=== PATIENT | male | born 1935 | race Hispanic/Latino ===

== ENCOUNTER 2020-09-25 12:04 | Emergency (ER) | payer OTHER ==
[~2020-09-25 12:04] MED LIST: ALBU8.5H8 IH; APIX2.5T PO; BUDE10.2 IH; FERS325 PO; FURO40TA7 PO; LACT10SO32 PO; LISI1TAB51 PO; LUBI24CA2 PO; METF-446 PO; METO-391 PO; POTA-79 PO; SIMV-43 PO
[2020-09-25] MEDS ORDERED: SODIUM CHLORIDE 0.9% 1000ML 1,000 ML IV ONE (12:05)
[2020-09-25 12:26] LABS: BASOPHILS % (AUTO) 0.7 % (0.0-5.0); EOSINOPHILS % (AUTO) 3.4 % (0.0-8.0); LYMPHOCYTES % (AUTO) 34.5 % (21.0-51.0); MEAN CORPUSCULAR HEMOGLOBIN 28.5 pg (27.0-33.0); MEAN CORPUSCULAR HGB CONC 33.3 g/dL (32.0-36.0); MEAN CORPUSCULAR VOLUME 85.8 fL (79-99); MONOCYTES % (AUTO) 9.1 % (3.0-13.0); NEUTROPHILS % (AUTO) 52.1 % (40.0-77.0); PLATELET COUNT (AUTO) 205 K/uL (130-400); RED BLOOD CELL COUNT(AUTO) 4.66 MIL/uL (4.50-6.20); RED CELL DISTRIBUTION WIDTH 13.9 % (11.0-15.5); WHITE BLOOD COUNT (AUTO) 5.8 K/uL (4.8-10.8)
[2020-09-25 12:35] LABS: CREATININE 1.7 mg/dL (0.5-1.5); POTASSIUM 4.5 mmol/L (3.5-5.1)
[2020-09-25 12:40] LABS: ALBUMIN 3.8 g/dL (3.5-5.0); BILIRUBIN,TOTAL 0.9 mg/dL (0.2-1.0); TOTAL PROTEIN, SERUM 8.3 g/dL (6.0-8.3)
[2020-09-25 15:35] LABS: CREATININE 1.5 mg/dL (0.5-1.5); POTASSIUM 4.2 mmol/L (3.5-5.1)
== END 2020-09-25 15:51 | disposition home or self-care (01) ==
LOC: EDH 12:04
DX: R79.89 Other specified abnormal findings of blood chemistry (principal); I11.0 Hypertensive heart disease with heart failure; I50.9 Heart failure, unspecified; E11.9 Type 2 diabetes mellitus without complications; E78.00 Pure hypercholesterolemia, unspecified; Z87.891 Personal history of nicotine dependence
CPT/HCPCS: 36415; 80048; 80053; 85025; 96360; 99283; J7030

== ENCOUNTER → 2021-02-12 | Outpatient (CLI) | payer OTHER | END | disposition home or self-care (01) | LOC: RAH 07:48 | PROVIDERS: ATTEND Internal Medicine Gastroenterology | DX: K80.20 Calculus of gallbladder without cholecystitis without obstruction (principal); K74.60 Unspecified cirrhosis of liver | CPT/HCPCS: 76700; 93975 ==

== ENCOUNTER 2021-06-06 10:55 | Observation (INO) | payer OTHER ==
[~2021-06-06] VITALS: Ht 172.7 cm; Wt 94.8 kg
[2021-06-06 10:57] VITALS: BP 137/76
[2021-06-06] MEDS ORDERED: PANTOPRAZOLE 40 MG/VIAL IVP ONE (12:30)
[2021-06-06] MEDS ORDERED: ONDANSETRON 4MG INJ IVP ONE (12:30)
[2021-06-06] MEDS ORDERED: 0.9%NACL 1000ML 1,000 ML IV ONE (12:30)
[2021-06-06 12:43] LABS: BASOPHILS % (AUTO) 0.6 % (0.0-5.0); EOSINOPHILS % (AUTO) 2.8 % (0.0-8.0); HEMATOCRIT 44.9 % (42-54); LYMPHOCYTES % (AUTO) 24.4 % (21.0-51.0); MEAN CORPUSCULAR VOLUME 87.2 fL (79-99); MONOCYTES % (AUTO) 10.7 % (3.0-13.0); NEUTROPHILS % (AUTO) 61.3 % (40.0-77.0); PLATELET COUNT (AUTO) 222 K/uL (130-400); RED BLOOD CELL COUNT(AUTO) 5.15 MIL/uL (4.50-6.20); RED CELL DISTRIBUTION WIDTH 14.3 % (11.0-15.5); WHITE BLOOD COUNT (AUTO) 5.4 K/uL (4.8-10.8)
[2021-06-06 13:00] VITALS: BP 117/63
[2021-06-06 13:04] LABS: APPEARANCE,URINE Clear (CLEAR); BILIRUBIN,URINE Negative (NEGATIVE); COLOR,URINE Yellow (YELLOW); GLUCOSE, URINE (UA) >=1000 mg/dL (NEGATIVE); KETONES,URINE Negative (NEGATIVE); LEUKOCYTE ESTERASE ,URINE Trace (NEGATIVE); NITRATE,URINE Negative (NEGATIVE); OCCULT BLOOD,URINE Negative (NEGATIVE); PROTEIN,URINE Negative (NEGATIVE)
[2021-06-06 13:08] LABS: BACTERIA,URINE Rare /HPF (None Seen); RBC,URINE 0-1 /HPF (0-1); SQUAMOUS EPITHELIAL CELL,UR Few /HPF (0-2); WBC,URINE 0-1 /HPF (0-1)
[2021-06-06 13:12] LABS: ALBUMIN 3.9 g/dL (3.5-5.0); BILIRUBIN,TOTAL 0.9 mg/dL (0.2-1.0); POTASSIUM 4.3 mmol/L (3.5-5.1); TOTAL PROTEIN, SERUM 8.3 g/dL (6.0-8.3)
[2021-06-06] MEDS: 0.9%NACL 1000ML 1,000 ML IV SCH (14:56)
[2021-06-06] MEDS ORDERED: ACETAMINOPHEN 325 MG TAB PO PRN ×2 (15:00)
[2021-06-06] MEDS ORDERED: ONDANSETRON 4MG INJ IV PRN (15:00)
[2021-06-06] MEDS ORDERED: LACTULOSE 20 GM/30 ML UDCUP PO PRN (15:00)
[2021-06-06] MEDS ORDERED: HEPARIN 5,000 UNIT VIAL SQ SCH (15:30)
[2021-06-06 15:49] LABS: CHOLESTEROL 120 mg/dL (<200); HDL CHOLESTEROL 41 mg/dL (29-71); LDL DIRECT 66 mg/dL (0-99); TRIGLYCERIDES 96 mg/dL (30-200)
[2021-06-06] MEDS: INSULIN HUMULIN R 100 UNIT/ML 3ML SQ SCH ×2 (16:03→22:01)
[2021-06-06 16:04] VITALS: BP 113/63
[2021-06-06 18:41] VITALS: BP 126/79
[2021-06-06 20:05] VITALS: BP 135/62
[2021-06-06] MEDS ORDERED: PIOG15TA66 PO (20:23)
[2021-06-07 03:37] VITALS: BP 106/67
[2021-06-07 05:33] VITALS: BP 119/67
[2021-06-07] MEDS ORDERED: SEMA1PEN3 SQ (07:19)
[2021-06-07 07:21] LABS: BASOPHILS % (AUTO) 0.8 % (0.0-5.0); EOSINOPHILS % (AUTO) 5.6 % (0.0-8.0); HEMATOCRIT 43.3 % (42-54); MEAN CORPUSCULAR HEMOGLOBIN 27.1 pg (27.0-33.0); MEAN CORPUSCULAR HGB CONC 31.2 g/dL (32.0-36.0); MEAN CORPUSCULAR VOLUME 86.9 fL (79-99); MONOCYTES % (AUTO) 12.8 % (3.0-13.0); NEUTROPHILS % (AUTO) 53.6 % (40.0-77.0); PLATELET COUNT (AUTO) 205 K/uL (130-400); RED BLOOD CELL COUNT(AUTO) 4.98 MIL/uL (4.50-6.20); RED CELL DISTRIBUTION WIDTH 14.4 % (11.0-15.5); WHITE BLOOD COUNT (AUTO) 4.9 K/uL (4.8-10.8)
[2021-06-07] MEDS: INSULIN HUMULIN R 100 UNIT/ML 3ML SQ SCH (07:30)
[2021-06-07 07:45] LABS: CREATININE 1.6 mg/dL (0.5-1.5); POTASSIUM 4.5 mmol/L (3.5-5.1)
[2021-06-07 07:48] VITALS: BP 126/68
[2021-06-07] MEDS ORDERED: PANTOPRAZOLE 40 MG TAB DR PO SCH (09:00)
[2021-06-07] MEDS: 0.9%NACL 1000ML 1,000 ML IV SCH (09:00)
[2021-06-07] MEDS ORDERED: FUROSEMIDE 40 MG TABLET PO SCH (09:08)
[2021-06-07] MEDS ORDERED: APIXABAN 2.5 MG TABLET PO SCH (09:08)
[2021-06-07] MEDS ORDERED: METOPROLOL SUCCINATE 50 MG TAB.SR.24H PO SCH (09:09)
[2021-06-07] MEDS ORDERED: PIOGLITAZONE 15MG TAB PO SCH (09:10)
[2021-06-07] MEDS ORDERED: LISINOPRIL 20 MG TABLET PO SCH (10:01)
[2021-06-07] MEDS ORDERED: HYDROCHLOROTHIAZIDE 25 MG TABLET PO SCH (10:02)
[2021-06-07 11:48] VITALS: BP 129/72
== END 2021-06-07 11:47 | disposition home or self-care (01) ==
LOC: EDH 10:55 → EDHIP 14:42
PROVIDERS: ADMIT Internal Medicine; ATTEND Internal Medicine
DX: N17.9 Acute kidney failure, unspecified (principal); I12.9 Hypertensive chronic kidney disease with stage 1 through stage 4 chronic kidney disease, or unspecified chronic kidney disease; N18.32 Chronic kidney disease, stage 3b; E11.22 Type 2 diabetes mellitus with diabetic chronic kidney disease; I25.10 Atherosclerotic heart disease of native coronary artery without angina pectoris; E11.65 Type 2 diabetes mellitus with hyperglycemia; E78.5 Hyperlipidemia, unspecified; D64.9 Anemia, unspecified; E87.5 Hyperkalemia; E78.00 Pure hypercholesterolemia, unspecified; R79.89 Other specified abnormal findings of blood chemistry; Z79.84 Long term (current) use of oral hypoglycemic drugs; Z87.891 Personal history of nicotine dependence; Z79.899 Other long term (current) drug therapy; Z98.890 Other specified postprocedural states
CPT/HCPCS: 36415 ×2; 76770; 80048; 80053; 80061; 81001; 82270; 82550; 82948 ×2; 83036; 83880; 84484; 85025 ×2; 86850; 86900; 86901; 93005; 96361 ×2; 96372; 96374; 96375; 99284; C9113; G0378 ×21; J1644; J1815 ×2; J2405; J7030

== ENCOUNTER 2021-12-03 05:36 | Day surgery (SDC) | payer OTHER ==
[2021-12-03] VITALS (7 sets, daily range): BP systolic 96–118; BP diastolic 47–58
[~2021-12-03] VITALS: Ht 172.7 cm; Wt 96.6 kg
[~2021-12-03 05:36] MED LIST changes: +PIOG15TA66 PO; +SEMA1PEN3 SQ
[2021-12-03] MEDS ORDERED: 0.9%NACL 1000ML 1,000 ML IV ONE (06:22)
[2021-12-03] MEDS ORDERED: TAMS-1 PO (07:12)
[2021-12-03] MEDS ORDERED: INSLAN SQ (07:12)
[2021-12-03] MEDS ORDERED: FINA5TAB41 PO (07:12)
[2021-12-03] MEDS ORDERED: ASCO500T19 PO (07:12)
[2021-12-03] MEDS ORDERED: LIDOCAINE HCL 1% 20 ML VIAL ONE (08:15)
[2021-12-03] MEDS ORDERED: PROPOFOL 10 MG/ML 20ML VIAL IV ONE (08:15)
[2021-12-03] MEDS ORDERED: PHENYLEPHRINE HCL 10 MG/ML 1ML VIAL IV ONE ×2 (08:21→08:22)
[2021-12-03] MEDS ORDERED: 0.9%NACL 10ML VIAL ONE ×2 (08:21→08:22)
[2021-12-03] MEDS ORDERED: EPHEDRINE SULFATE 50 MG/ML AMPULE ONE (08:25)
== END 2021-12-03 09:00 | disposition home or self-care (01) ==
LOC: DAH 05:36 → ENDO 05:36
PROVIDERS: ATTEND Internal Medicine Gastroenterology
DX: K74.69 Other cirrhosis of liver (principal); J44.9 Chronic obstructive pulmonary disease, unspecified; E78.5 Hyperlipidemia, unspecified; I48.91 Unspecified atrial fibrillation; E03.9 Hypothyroidism, unspecified; R18.8 Other ascites; I48.0 Paroxysmal atrial fibrillation; I11.0 Hypertensive heart disease with heart failure; I50.20 Unspecified systolic (congestive) heart failure; E11.9 Type 2 diabetes mellitus without complications; F41.9 Anxiety disorder, unspecified; Z79.4 Long term (current) use of insulin; Z79.899 Other long term (current) drug therapy; Z20.822 Contact with and (suspected) exposure to COVID-19
CPT/HCPCS: 43239; 82948; 87635; 93005; A4606; C9803; J2370; J2704; J3490; J7030

== ENCOUNTER 2021-12-10 18:08 | Inpatient (IN) | payer OTHER ==
[~2021-12-10] VITALS: Ht 172.7 cm; Wt 92.0 kg
[~2021-12-10 18:08] MED LIST changes: +ASCO500T19 PO; -BUDE10.2 IH; +FINA5TAB41 PO; +INSLAN SQ; -LACT10SO32 PO; -LUBI24CA2 PO; -METF-446 PO; -POTA-79 PO; +TAMS-1 PO
[2021-12-10 20:15] LABS: APPEARANCE,URINE Clear (CLEAR); BILIRUBIN,URINE Negative (NEGATIVE); COLOR,URINE Yellow (YELLOW); GLUCOSE, URINE (UA) 250 mg/dL (NEGATIVE); KETONES,URINE Negative (NEGATIVE); LEUKOCYTE ESTERASE ,URINE Large (NEGATIVE); NITRATE,URINE Negative (NEGATIVE); OCCULT BLOOD,URINE Negative (NEGATIVE); PROTEIN,URINE Negative (NEGATIVE); UROBILINOGEN,URINE 0.2 mg/dL (0.2-1.0)
[2021-12-10 20:31] LABS: BACTERIA,URINE Few /HPF (None Seen); RBC,URINE None Seen /HPF (0-1)
[2021-12-10 20:32] LABS: MUCUS,URINE Rare LPF (None Seen); SQUAMOUS EPITHELIAL CELL,UR Rare /HPF (0-2)
[2021-12-10 21:00] LABS: BASOPHILS % (AUTO) 0.3 % (0.0-5.0); EOSINOPHILS % (AUTO) 2.3 % (0.0-8.0); HEMATOCRIT 39.4 % (42-54); LYMPHOCYTES % (AUTO) 15.4 % (21.0-51.0); MEAN CORPUSCULAR HEMOGLOBIN 27.7 pg (27.0-33.0); MEAN CORPUSCULAR HGB CONC 32.5 g/dL (32.0-36.0); MEAN CORPUSCULAR VOLUME 85.3 fL (79-99); MONOCYTES % (AUTO) 11.1 % (3.0-13.0); NEUTROPHILS % (AUTO) 70.1 % (40.0-77.0); PLATELET COUNT (AUTO) 270 K/uL (130-400); RED BLOOD CELL COUNT(AUTO) 4.62 MIL/uL (4.50-6.20); RED CELL DISTRIBUTION WIDTH 13.2 % (11.0-15.5); WHITE BLOOD COUNT (AUTO) 6.6 K/uL (4.8-10.8)
[2021-12-10] MEDS ORDERED: CEFTRIAXONE 1G VIAL IVP ONE (21:00)
[2021-12-10 21:18] LABS: ALBUMIN 3.5 g/dL (3.5-5.0); BILIRUBIN,TOTAL 0.6 mg/dL (0.2-1.0); CRP QUANTITATIVE 71.6 mg/L (0.00-9.0); POTASSIUM 4.5 mmol/L (3.5-5.1); TOTAL PROTEIN, SERUM 8.6 g/dL (6.0-8.3)
[2021-12-10 21:26] LABS: B-TYPE NATRIURETIC PEPTIDE 182 pg/mL (0-100)
[2021-12-10] MEDS ORDERED: CEFTRIAXONE 1G VIAL ONE (22:29)
[2021-12-10] MEDS: CEFTRIAXONE 1G VIAL IVP SCH (22:30)
[2021-12-10] MEDS ORDERED: ONDANSETRON 4MG INJ IV PRN (22:30)
[2021-12-10] MEDS ORDERED: ACETAMINOPHEN 325 MG TAB PO PRN ×2 (22:30)
[2021-12-10] MEDS ORDERED: LACTULOSE 20 GM/30 ML UDCUP PO PRN (22:30)
[2021-12-11] MEDS ORDERED: SIMV-46 PO (00:50)
[2021-12-11] MEDS ORDERED: INSLAN SQ (00:50)
[2021-12-11] MEDS ORDERED: FINA5TAB41 PO (00:50)
[2021-12-11] MEDS ORDERED: ALBUHFA IH (00:50)
[2021-12-11] MEDS ORDERED: TAMS-1 PO (00:50)
[2021-12-11] MEDS ORDERED: METO-391 PO (00:50)
[2021-12-11] MEDS ORDERED: PIOG30TA70 PO (00:50)
[2021-12-11] MEDS ORDERED: FERS325 PO (00:50)
[2021-12-11] MEDS ORDERED: LISI1TAB51 PO (00:50)
[2021-12-11] MEDS ORDERED: FURO20TA4 PO (00:50)
[2021-12-11] MEDS ORDERED: EMPA25TA PO (00:50)
[2021-12-11] MEDS ORDERED: APIX5TAB PO (00:50)
[2021-12-11 06:23] LABS: BASOPHILS % (AUTO) 0.3 % (0.0-5.0); EOSINOPHILS % (AUTO) 2.7 % (0.0-8.0); HEMATOCRIT 36.1 % (42-54); LYMPHOCYTES % (AUTO) 15.2 % (21.0-51.0); MEAN CORPUSCULAR HEMOGLOBIN 27.5 pg (27.0-33.0); MEAN CORPUSCULAR HGB CONC 32.4 g/dL (32.0-36.0); MEAN CORPUSCULAR VOLUME 84.9 fL (79-99); MONOCYTES % (AUTO) 12.1 % (3.0-13.0); NEUTROPHILS % (AUTO) 69.2 % (40.0-77.0); PLATELET COUNT (AUTO) 265 K/uL (130-400); RED BLOOD CELL COUNT(AUTO) 4.25 MIL/uL (4.50-6.20); RED CELL DISTRIBUTION WIDTH 13.2 % (11.0-15.5); WHITE BLOOD COUNT (AUTO) 7.8 K/uL (4.8-10.8)
[2021-12-11 06:35] LABS: BILIRUBIN,TOTAL 0.5 mg/dL (0.2-1.0); CREATININE 2.7 mg/dL (0.5-1.5); POTASSIUM 4.7 mmol/L (3.5-5.1); TOTAL PROTEIN, SERUM 7.6 g/dL (6.0-8.3)
[2021-12-11 08:40] VITALS: BP 120/59
[2021-12-11] MEDS: FAMOTIDINE 20MG TAB PO SCH ×2 (10:29→20:54)
[2021-12-11 11:45] VITALS: BP 101/62
[2021-12-11 16:00] VITALS: BP 109/54
[2021-12-11 20:00] VITALS: BP 94/64
[2021-12-11] MEDS: GUAIFENESIN-DM 200/20 MG 10 ML PO PRN (22:37)
[2021-12-11] MEDS: CEFTRIAXONE 1G VIAL IVP SCH (22:37)
[2021-12-11 23:32] VITALS: BP 86/53
[2021-12-12] VITALS (8 sets, daily range): BP systolic 93–147; BP diastolic 43–72
[2021-12-12 06:22] LABS: HEMATOCRIT 35.9 % (42-54); MEAN CORPUSCULAR HEMOGLOBIN 26.8 pg (27.0-33.0); MEAN CORPUSCULAR VOLUME 83.7 fL (79-99); RED BLOOD CELL COUNT(AUTO) 4.29 MIL/uL (4.50-6.20); RED CELL DISTRIBUTION WIDTH 13.1 % (11.0-15.5); WHITE BLOOD COUNT (AUTO) 6.7 K/uL (4.8-10.8)
[2021-12-12 06:30] LABS: INR 1.21 (0.85-1.15)
[2021-12-12 06:31] LABS: PARTIAL THROMBOPLASTIN TIME 33.2 SEC (26.3-35.5)
[2021-12-12 06:34] LABS: CREATININE 2.6 mg/dL (0.5-1.5); POTASSIUM 4.6 mmol/L (3.5-5.1)
[2021-12-12] MEDS: FAMOTIDINE 20MG TAB PO SCH ×2 (08:26→20:10)
[2021-12-12] MEDS ORDERED: SODIUM BICARB 50MEQ 50ML VIAL 50 ML ONE (18:13)
[2021-12-12] MEDS ORDERED: LIDOCAINE HCL 400MG/20ML VIAL ONE (18:13)
[2021-12-12] MEDS ORDERED: FUROSEMIDE 40MG VIAL ONE (18:57)
[2021-12-12] MEDS ORDERED: METOPROLOL TARTRATE 50 MG TAB PO SCH (19:00)
[2021-12-12] MEDS: METOPROLOL TARTRATE 25 MG TAB PO SCH (20:11)
[2021-12-12] MEDS: GUAIFENESIN-DM 200/20 MG 10 ML PO PRN (21:14)
[2021-12-12] MEDS: CEFTRIAXONE 1G VIAL IVP SCH (23:04)
[2021-12-13 03:33] VITALS: BP 100/56
[2021-12-13 03:38] LABS: CREATININE 2.1 mg/dL (0.5-1.5); POTASSIUM 4.3 mmol/L (3.5-5.1)
[2021-12-13 07:08] LABS: HEMATOCRIT 37.3 % (42-54); MEAN CORPUSCULAR HEMOGLOBIN 27.6 pg (27.0-33.0); MEAN CORPUSCULAR HGB CONC 32.2 g/dL (32.0-36.0); MEAN CORPUSCULAR VOLUME 85.7 fL (79-99); RED BLOOD CELL COUNT(AUTO) 4.35 MIL/uL (4.50-6.20); RED CELL DISTRIBUTION WIDTH 13.1 % (11.0-15.5); WHITE BLOOD COUNT (AUTO) 6.2 K/uL (4.8-10.8)
[2021-12-13 07:33] VITALS: BP 116/62
[2021-12-13] MEDS: FAMOTIDINE 20MG TAB PO SCH ×2 (08:45→20:07)
[2021-12-13] MEDS: METOPROLOL TARTRATE 25 MG TAB PO SCH ×2 (08:45→20:07)
[2021-12-13] MEDS ORDERED: FUROSEMIDE 40MG VIAL IV SCH (09:00)
[2021-12-13 11:48] VITALS: BP 111/72
[2021-12-13 15:51] VITALS: BP 145/65
[2021-12-13 19:39] VITALS: BP 123/64
[2021-12-13] MEDS: CEFTRIAXONE 1G VIAL IVP SCH (20:07)
[2021-12-14 00:13] VITALS: BP 127/64
[2021-12-14 03:34] LABS: POTASSIUM 4.1 mmol/L (3.5-5.1)
[2021-12-14 03:40] VITALS: BP 123/66
[2021-12-14 07:47] VITALS: BP 128/67
[2021-12-14] MEDS: FAMOTIDINE 20MG TAB PO SCH ×2 (08:06→20:57)
[2021-12-14] MEDS: METOPROLOL TARTRATE 25 MG TAB PO SCH ×2 (08:06→20:57)
[2021-12-14] MEDS: TAMSULOSIN HCL 0.4 MG CAP.ER.24H PO SCH (09:51)
[2021-12-14] MEDS: FINASTERIDE 5 MG TABLET PO SCH (09:52)
[2021-12-14 12:27] VITALS: BP 110/66
[2021-12-14] MEDS ORDERED: DEXTROSE 50%-WATER 50 ML DISP.SYRIN IV PRN (15:00)
[2021-12-14] MEDS ORDERED: GLUCAGON 1MG KIT 1 MG ML IM PRN (15:00)
[2021-12-14] MEDS: INSULIN HUMULIN R 100 UNIT/ML 3ML SQ SCH ×2 (16:07→20:58)
[2021-12-14 16:22] VITALS: BP 111/66
[2021-12-14 19:48] VITALS: BP 118/67
[2021-12-14] MEDS: CEFTRIAXONE 1G VIAL IVP SCH (20:57)
[2021-12-14] MEDS ORDERED: SIMVASTATIN 20 MG TABLET PO SCH (21:00)
[2021-12-14] MEDS: GUAIFENESIN-DM 200/20 MG 10 ML PO PRN (21:53)
[2021-12-15] VITALS: BP 106/62
[2021-12-15 04:00] VITALS: BP 107/61
[2021-12-15] MEDS: INSULIN HUMULIN R 100 UNIT/ML 3ML SQ SCH ×2 (05:42→11:28)
[2021-12-15 06:36] LABS: BASOPHILS % (AUTO) 0.6 % (0.0-5.0); EOSINOPHILS % (AUTO) 4.3 % (0.0-8.0); HEMATOCRIT 36.5 % (42-54); LYMPHOCYTES % (AUTO) 17.1 % (21.0-51.0); MEAN CORPUSCULAR HEMOGLOBIN 27.7 pg (27.0-33.0); MEAN CORPUSCULAR HGB CONC 32.6 g/dL (32.0-36.0); MEAN CORPUSCULAR VOLUME 84.9 fL (79-99); MONOCYTES % (AUTO) 11.3 % (3.0-13.0); NEUTROPHILS % (AUTO) 66.4 % (40.0-77.0); PLATELET COUNT (AUTO) 285 K/uL (130-400); WHITE BLOOD COUNT (AUTO) 6.4 K/uL (4.8-10.8)
[2021-12-15 06:44] LABS: CREATININE 1.8 mg/dL (0.5-1.5); POTASSIUM 4.2 mmol/L (3.5-5.1)
[2021-12-15 08:00] VITALS: BP 102/61
[2021-12-15] MEDS: TAMSULOSIN HCL 0.4 MG CAP.ER.24H PO SCH (08:29)
[2021-12-15] MEDS: METOPROLOL TARTRATE 25 MG TAB PO SCH (08:29)
[2021-12-15] MEDS: FINASTERIDE 5 MG TABLET PO SCH (08:29)
[2021-12-15] MEDS: FAMOTIDINE 20MG TAB PO SCH (08:29)
[2021-12-15 10:58] VITALS: BP 119/70
[2021-12-15] MEDS ORDERED: CEPH250T PO (11:53)
== END 2021-12-15 13:10 | disposition home or self-care (01) | DRG 286 ==
LOC: EDH 18:08 → OBSVTOIN 22:14 → EDHIP 22:14 → 3BH 12-11 08:07 → 2DH 12-12 00:44
PROVIDERS: ADMIT Hospitalist; ATTEND Internal Medicine
PROC: 4A023N6 Measurement of Cardiac Sampling and Pressure, Right Heart, Percutaneous Approach (ICD-10-PCS; principal; 2021-12-12)
PROC: B2141ZZ Fluoroscopy of Right Heart using Low Osmolar Contrast (ICD-10-PCS; 2021-12-12)
DX: I13.0 Hypertensive heart and chronic kidney disease with heart failure and stage 1 through stage 4 chronic kidney disease, or unspecified chronic kidney disease (principal); I50.33 Acute on chronic diastolic (congestive) heart failure; I31.3 Pericardial effusion (noninflammatory); N17.9 Acute kidney failure, unspecified; N39.0 Urinary tract infection, site not specified; E87.1 Hypo-osmolality and hyponatremia; I48.19 Other persistent atrial fibrillation; I95.9 Hypotension, unspecified; N18.32 Chronic kidney disease, stage 3b; E11.22 Type 2 diabetes mellitus with diabetic chronic kidney disease; K74.60 Unspecified cirrhosis of liver; J44.9 Chronic obstructive pulmonary disease, unspecified; Z20.822 Contact with and (suspected) exposure to COVID-19; E78.5 Hyperlipidemia, unspecified; Z87.891 Personal history of nicotine dependence; Z82.49 Family history of ischemic heart disease and other diseases of the circulatory system
CPT/HCPCS: 36415; 71045; 80048; 80053; 81001; 82948; 83880; 84484; 85025; 85027; 85610; 85730; 86140; 87077; 87088; 87186; 87635; 93005; 93306; 93451; C1894; G0378; J0696; J1644; J1815; J1940; J3490